=== PATIENT | female | born 1965 | race African-American/Black ===

== ENCOUNTER → 2017-03-30 | Day surgery (SDC) | payer BC ==
[~2017-03-30] MED LIST: ASPI81TA23 PO; HYALURONIDASE HUMAN 150 UNIT/1 ML VIAL ONE; IBUP1TAB7 PO; LIDOCAINE HCL 1% PF 30 ML VIAL INFIL ONE; LISI-519 PO; LOVA20TA PO; MEPERIDINE HCL 25 MG/ML VIAL IV ONE; NON-500T10; NOVO7030P2 SQ; PROPOFOL 200 MG/20 ML AMP IV ONE; SODIUM CHLORIDE 0.9% 10 ML VIAL ONE; methylPREDNISolone ACETATE 80 MG/ML VIAL ONE
--- NOTE | 2017-03-30 10:05 | M6 ---
cc: VIRGINIA BAILEY M.D. DATE: 03/30/2017 DATE OF : 1965 PROCEDURE Fluoroscopically guided L5-S1 interlaminar epidural steroid injection. PROCEDURE NOTE History and physical was completed and signed. Consent was signed. Procedure site was marked. Medications were listed and reconciled. Pain score was recorded. Allergies were noted. Timeout was taken. Fluoroscopy time was recorded where applicable. Sedation was administered or directed by Dr. Bailey. The patient was given oxygen. The patient was monitored by a registered nurse. Total procedure time was greater than 15 minutes. An IV was started, blood pressure cuff, pulse oximeter and EKG were applied. The patient was placed in the prone position on a Shaji table, sedated with small amounts of propofol titrated to effect. Vital signs were monitored and remained stable throughout the procedure. The lumbar area was prepped with alcohol and 10% Betadine solution, draped with sterile drapes. Fluoroscopy was used to visualize the L5-S1 interlaminar space. The skin was infiltrated with 1% Xylocaine using a 27-gauge needle. Then a 3-1/2 inch, 18-gauge Wilkinson needle was advanced using fluoroscopic guidance and the [id number]-[id number] technique into the epidural space at L5-S1 slightly to the left of the midline. There was negative aspiration for blood or any other type of fluid and the patient was given 10 mL of 0.5% Xylocaine, 80 mg of Depo-Medrol and 150 units of Wydase. Following this the patient was taken to the recovery room with stable vital signs, neurologically intact. WMD TLYER Peralta/DHARA /9:50 AM /10:05 AM
== END | disposition home or self-care (01) ==
LOC: PHSDC 08:01
PROVIDERS: ATTEND Pain Medicine Interventional Pain Medicine
DX: M54.9 Dorsalgia, unspecified (principal)
CPT/HCPCS: 62323; 99152; J1040; J2175; J3473

== ENCOUNTER 2017-04-21 06:36 | Day surgery (SDC) | payer BC ==
[2017-04-21] VITALS (10 sets, daily range): BP systolic 120–179; BP diastolic 69–85; PULSE 70–92; RESP 15–20; TEMP 97.5–97.8; O2SAT 92–98
[~2017-04-21] VITALS: Ht 162.6 cm; Wt 52.3 kg
[~2017-04-21 06:36] MED LIST changes: -HYALURONIDASE HUMAN 150 UNIT/1 ML VIAL ONE; -IBUP1TAB7 PO; -LIDOCAINE HCL 1% PF 30 ML VIAL INFIL ONE; -MEPERIDINE HCL 25 MG/ML VIAL IV ONE; -PROPOFOL 200 MG/20 ML AMP IV ONE; -SODIUM CHLORIDE 0.9% 10 ML VIAL ONE; -methylPREDNISolone ACETATE 80 MG/ML VIAL ONE
[2017-04-21] MEDS ORDERED: GELATIN 12 MM/7 MM FOAM ONE (06:37)
[2017-04-21] MEDS ORDERED: SODIUM CHLOR 0.9% 1000 ML IV SCH (07:30)
[2017-04-21] MEDS ORDERED: LIDOCAINE 1%/EPINEPHrine 1:100,000 SOLN 20 ML VIAL ONE (07:37)
[2017-04-21] MEDS ORDERED: MIDAZOLAM HCL 2 MG/2 ML VIAL ONE (07:43)
[2017-04-21] MEDS ORDERED: THROMBIN (TOPICAL) 5,000 UNIT VIAL ONE (08:54)
--- NOTE | 2017-04-21 09:17 | PD.RAD ---
Post CT Procedure Prog Note Pre Procedure Diagnosis: (1) Abnormal renal function test Post Procedure Diagnosis: (1) Abnormal renal function test Procedure Date: Apr 21, 2017 Supervising Radiologist: Hitesh Michael Plan of Activity See PACS Report for procedural detail/treatment Biopsy Side: Right Biopsy Procedure: Kidney Specimen: Core Biopsy Findings: Single 18 gauge core. Tract sealed with gelfoam and thrombin slurry. Hitesh Michael MD Apr 21, 2017 09:17
[2017-04-21 10:04] LABS: AUTOMATED NEUTROPHIL # 3.7 TH/MM3 (1.8-7.7); BASOPHIL % 0.5 % (0.0-2.0); EOSINOPHIL # 0.1 TH/MM3 (0-0.4); EOSINOPHIL % 2.1 % (0.0-4.0); HEMO FLAGS DIFF FINAL; LYMPH % 35.7 % (9.0-44.0); LYMPHOCYTE # 2.4 TH/MM3 (1.0-4.8); MEAN CELL VOLUME 80.3 FL (80.0-100.0); MEAN CORPUSCULAR HEMOGLOBIN 25.5 PG (27.0-34.0); MEAN CORPUSCULAR HGB CONC 31.8 % (32.0-36.0); MONO % 5.8 % (0.0-8.0); NEUT % 55.9 % (16.0-70.0); PLATELET COUNT 169 TH/MM3 (150-450); RED BLOOD COUNT 3.61 MIL/MM3 (4.00-5.30); RED CELL DISTRIBUTION WIDTH 14.3 % (11.6-17.2); WHITE BLOOD COUNT 6.6 TH/MM3 (4.0-11.0)
[2017-04-21 12:02] LABS: AUTOMATED NEUTROPHIL # 3.8 TH/MM3 (1.8-7.7); BASOPHIL % 0.3 % (0.0-2.0); EOSINOPHIL # 0.1 TH/MM3 (0-0.4); HEMATOCRIT 28.1 % (35.0-46.0); HEMO FLAGS DIFF FINAL; LYMPH % 29.2 % (9.0-44.0); LYMPHOCYTE # 1.8 TH/MM3 (1.0-4.8); MEAN CELL VOLUME 79.7 FL (80.0-100.0); MEAN CORPUSCULAR HEMOGLOBIN 25.4 PG (27.0-34.0); MEAN CORPUSCULAR HGB CONC 31.8 % (32.0-36.0); MONO % 6.3 % (0.0-8.0); NEUT % 62.2 % (16.0-70.0); PLATELET COUNT 175 TH/MM3 (150-450); RED BLOOD COUNT 3.53 MIL/MM3 (4.00-5.30); RED CELL DISTRIBUTION WIDTH 14.5 % (11.6-17.2); WHITE BLOOD COUNT 6.1 TH/MM3 (4.0-11.0)
--- NOTE | 2017-04-21 15:41 | RADRPT ---
EXAM DATE/TIME: 04/21/2017 08:33 [facility] COMPARISON: No previous studies available for comparison. INDICATIONS : Chronic kidney disease. SEDATION TIME: 30 minutes BIOPSY SITE: Right kidney. MEDICATION(S): 1.) 1.5 mg midazolam (Versed) IV 2.) 75 mcg fentanyl (Sublimaze) IV DEVICE(S): 1.) 17 gauge micropuncture introducer 2.) 18 gauge Temno core biopsy needle MEDICAL HISTORY : Diabetes mellitus type 2. Hypertension. Cardiovascular disease. Chronic kidney disease. SURGICAL HISTORY : Tubal ligation. ENCOUNTER: Initial ACUITY: 1 day PAIN SCORE: 0/10 LOCATION: Right flank A total of one core specimen(s) were obtained and sent to the laboratory for pathologic evaluation. PROCEDURE: 1. CT guided renal biopsy. Prior to the procedure informed consent was obtained. Any appropriate prior imaging studies were rev iewed. Using automated exposure control and adjustment of the mA and/or kV according to patient size, radiat ion dose was kept as low as reasonably achievable to obtain optimal diagnostic quality images. DICOM format image data is available electronically for review and comparison. The site was prepped in a sterile fashion. Full sterile technique was used, including cap, mask, john rile gloves and gown and a large sterile sheet. Hand hygiene and 2% chlorhexidine and/or betadine/al cohol prep was utilized per protocol for cutaneous antisepsis. The skin and subcutaneous tissues wer e infiltrated with local anesthetic solution. With CT guidance the previously identified target was localized. Coaxial system was utilized with the 17 gauge guide needle advanced to the edge of the renal cortex at the junction of the mid and lower pole. Biopsy was performed using the prescribed needle as above. There was immediate drainage of a sm all amount of blood from the guide needle after biopsy. Therefore, the guide needle was injected with approximately 7 cc of a thrombin and Gelfoam slurry with cessation of hemorrhage. Follow-up CT scan reveals no hemorrhage. The patient tolerated the procedure well and there were no complications. The patient was returned to the Radiology Outpatient Unit in stable condition. CONCLUSION: Uncomplicated CT guided biopsy. Hitesh Michael MD on April 21, 2017 at 15:37 Board Certified Radiologist. This report was verified electronically.
== END 2017-04-21 15:00 | disposition home or self-care (01) ==
LOC: HRAD 06:36 → HRIP 06:42 → HRAD 15:00
PROVIDERS: ATTEND Internal Medicine Nephrology
DX: R80.9 Proteinuria, unspecified (principal); R94.4 Abnormal results of kidney function studies; N18.9 Chronic kidney disease, unspecified; I12.9 Hypertensive chronic kidney disease with stage 1 through stage 4 chronic kidney disease, or unspecified chronic kidney disease; E11.22 Type 2 diabetes mellitus with diabetic chronic kidney disease; I25.10 Atherosclerotic heart disease of native coronary artery without angina pectoris
CPT/HCPCS: 50200; 77012; 85025; 88305; 88313; 88346; 88348; 88350; J2250; J3010; J7030

== ENCOUNTER 2017-10-28 06:33 | Day surgery (SDC) | payer BC ==
[~2017-10-28] VITALS: Ht 162.6 cm; Wt 52.3 kg
[2017-10-28 07:12] VITALS: BP 209/115; PULSE 88; RESP 18; TEMP 97.8; O2SAT 91
[2017-10-28] MEDS ORDERED: SODIUM CHLOR 0.9% 1000 ML INJ 1,000 ML IV SCH (07:15)
[2017-10-28] MEDS ORDERED: HYDR-3583 PO (07:53)
[2017-10-28] MEDS ORDERED: CHOL1TAB42 PO (07:53)
[2017-10-28 08:07] LABS: AUTOMATED NEUTROPHIL # 3.6 TH/MM3 (1.8-7.7); BASOPHIL # 0.1 TH/MM3 (0-0.2); BASOPHIL % 0.9 % (0.0-2.0); EOSINOPHIL # 0.2 TH/MM3 (0-0.4); EOSINOPHIL % 3.3 % (0.0-4.0); HEMATOCRIT 29.4 % (35.0-46.0); HEMOGLOBIN 9.5 GM/DL (11.6-15.3); LYMPH % 32.1 % (9.0-44.0); MEAN CELL VOLUME 79.5 FL (80.0-100.0); MEAN CORPUSCULAR HEMOGLOBIN 25.5 PG (27.0-34.0); MEAN CORPUSCULAR HGB CONC 32.1 % (32.0-36.0); MEAN PLATELET VOLUME 8.8 FL (7.0-11.0); MONO % 6.4 % (0.0-8.0); MONOCYTE # 0.4 TH/MM3 (0-0.9); NEUT % 57.3 % (16.0-70.0); PLATELET COUNT 248 TH/MM3 (150-450); RED CELL DISTRIBUTION WIDTH 13.3 % (11.6-17.2); WHITE BLOOD COUNT 6.3 TH/MM3 (4.0-11.0)
[2017-10-28 08:14] LABS: INTERNATIONAL NORMALIZED RATIO 0.9 RATIO; PROTHROMBIN TIME - PATIENT 9.4 SEC (9.8-11.6)
[2017-10-28 08:44] LABS: BICARBONATE 30.2 MEQ/L (21.0-32.0); CALCIUM 8.5 MG/DL (8.5-10.1); CREATININE 1.71 MG/DL (0.50-1.00)
[2017-10-28] MEDS ORDERED: LISINOPRIL 20 MG TAB PO ONE (09:15)
[2017-10-28 10:00] VITALS: BP 194/104; PULSE 98; RESP 18; TEMP 97.7; O2SAT 93
[2017-10-28 10:55] LABS: TOTAL PROTEIN,CSF LESS THAN 5.0 MG/DL (15.0-45.0)
--- NOTE | 2017-10-28 11:31 | RADRPT ---
EXAM DATE: 10/28/2017 10:13 AM EDT AGE/SEX: 52 years / Female INDICATIONS: Patient with a history of bilateral leg weakness. CLINICAL DATA: This is the patient's initial encounter. Patient reports that signs and symptoms have been present for > 1 year and indicates a pain score of 1/10. MEDICAL/SURGICAL HISTORY: Hypercholesterolemia. Hypertension. Diabetes. MS . Back surgery 2 013 COMPARISON: No prior exams available for comparison. FLUORO TIME (min): 0.34 IMAGE SERIES: 3 ACCESS SITE: L3-4 LUMBAR PUNCTURE TIME: 0945 hours FLUID: Total volume of 14 cc of clear fluid was removed. Fluid was sent to lab for ordered studies. . . PROCEDURE: 1. Fluoroscopic guided lumbar puncture. The risks, benefits and alternatives to the procedure were explained and verbal and written consent w as obtained. The site was prepped in sterile fashion. Full sterile technique was used, including ca p, mask, sterile gloves and gown and a large sterile sheet. Hand hygiene and 2% chlorhexidine and/or betadine/alcohol prep was utilized per protocol for cutaneous antisepsis. The skin and subcutaneous tissues were infiltrated with local anesthetic solution. With fluoroscopic guidance the lumbar thecal sac was punctured at the level above. The fluid describ ed above was removed without difficulty. The patient tolerated the procedure well and there were no complications. CONCLUSION: Uncomplicated fluoroscopically guided lumbar puncture. Electronically signed by: Hugo Valentine MD 10/28/2017 11:29 AM EDT
[2017-10-28 12:00] VITALS: BP 217/120; PULSE 90; RESP 20; O2SAT 93
[2017-10-28 12:02] LABS: SUPERNATE COLOR TUBE #1 CLEAR (CLEAR)
[2017-10-28 12:03] LABS: CSF LYMPHOCYTES 0 %; CSF NEUTROPHILS 0 %; RBC TUBE #1 10 /MM3; WBC TUBE #1 0 /MM3 (0-10)
[2017-10-28 12:08] LABS: RBC TUBE #4 3 /MM3; WBC TUBE #4 0 /MM3 (0-10)
[2017-10-28 12:09] LABS: CSF LYMPHOCYTES 0 %; CSF NEUTROPHILS 0 %
[2017-10-29 14:21] LABS: CMV DNA QUANT BY RAPID PCR Negative (Negative)
[2017-10-29 15:52] LABS: HSV 1,PCR Negative (Negative)
[2017-10-31 10:04] LABS: CSF CRYPTOCOCCUS AG CONF ND (NOT DETECTD)
[2017-10-31 16:28] LABS: HTLV I/II ANTIBODY Negative (Negative)
[2017-11-02 19:51] LABS: CSF CRYPTOCOCCUS ANTIGEN NOT DETECTED (NEGATIVE)
[2017-11-04 03:51] LABS: VDRL CSF NON-REACTIVE (NON-REACTVE)
== END 2017-10-28 12:05 | disposition home or self-care (01) ==
LOC: HROP 06:33 → HRIP 06:37 → HROP 12:05
PROVIDERS: ATTEND Specialist
DX: G95.89 Other specified diseases of spinal cord (principal); R53.1 Weakness; E78.00 Pure hypercholesterolemia, unspecified; I10 Essential (primary) hypertension; I25.2 Old myocardial infarction; E11.9 Type 2 diabetes mellitus without complications; Z01.818 Encounter for other preprocedural examination
CPT/HCPCS: 62270; 77003; 80048; 82040; 82042; 82784; 82945; 83873; 83916; 84157; 85025; 85610; 85730; 86403; 86592; 86618; 86790; 87015; 87070; 87102; 87116; 87205; 87206; 87252; 87497; 87529; 88108; 89051; J7030